=== PATIENT | male | born 1965 | race Caucasian/White ===

== ENCOUNTER → 2024-01-14 20:13 | Outpatient (REF) | payer BC, SELFPAY | LOC: MRI 3T 20:13 | PROVIDERS: ATTENDING PHYSICIAN Surgery; FAMILY PHYSICIAN Family Medicine | DX: R97.20 Elevated prostate specific antigen [PSA] (principal) | CPT/HCPCS: 72197; A9575 ==

== ENCOUNTER 2024-04-16 06:15 | Day surgery (SDC) | payer BC, SELFPAY ==
[2024-04-10 09:21] LABS: Hematocrit 44.7 % (39.0-52.0); Hemoglobin 14.8 g/dL (13.0-18.0); Mean Corp Hgb Conc. 33.1 g/dL (33.0-37.0); Mean Corpuscular Hgb 30.2 pg (27.0-31.0); Mean Corpuscular Volume 91.2 fL (80.0-94.0); Platelet Count 185 10^3/uL (130-400); Red Cell Dist. Width 13.5 % (11.5-14.5); White Blood Cell Count 5.6 10^3/uL (4.8-10.8)
[2024-04-10 09:32] LABS: INR 0.96
[2024-04-10 09:33] LABS: APTT 29.5 Sec (23.4-35.0)
[2024-04-10 09:57] LABS: Blood Urea Nitrogen 20 mg/dl (9-20); Calcium 9.1 mg/dl (8.4-10.2); Carbon Dioxide 34 mmol/L (22-30); Chloride 100 mmol/L (98-107); Glucose 74 mg/dl (70-99); Potassium 4.3 mmol/L (3.5-5.1); Sodium 140 mmol/L (135-145); eGFR > 60.00
[2024-04-10 11:40] VITALS: BMI 28.4
[2024-04-16] VITALS (23 sets, daily range): BP systolic 93–129; BP diastolic 53–98; BMI 27.6; BMI 28.6
[2024-04-16] MEDS: NEBCIN 480 MG/100 ML ENEMA 1 BOTTLE RECTAL (06:45)
[2024-04-16] MEDS: NORMOSOL-R/PLASMALYTE-A 1000 IV ×3 (06:45→23:34)
--- NOTE | 2024-04-16 10:12 | W.IMMPOSTOP ---
Surgical Immed Post Op Note
-
Primary Surgeon: Lori
Assisting Surgeon: Jono
Pre-op Diagnosis: prostate cancer
Post-op Diagnosis: same
Procedure Performed: radical perineal prostatectomy, bladder neck reconstruction
Anesthesia Type: GET
Specimen / Cultures: None
Estimated Blood Loss: 300 ml
Complications: None
[2024-04-16] MEDS: DILAUDID 0.5 MG IV (10:20)
[2024-04-16 10:37] LABS: Hematocrit 39.1 % (39.0-52.0); Hemoglobin 13.5 g/dL (13.0-18.0)
[2024-04-16] MEDS: DILAUDID 0.25 MG IV (10:39)
[2024-04-16 10:58] LABS: Blood Urea Nitrogen 16 mg/dl (9-20); Calcium 8.1 mg/dl (8.4-10.2); Carbon Dioxide 28 mmol/L (22-30); Chloride 102 mmol/L (98-107); Estimated Creatinine Clearance 116 ml/min; Glucose 166 mg/dl (70-99); Potassium 4.5 mmol/L (3.5-5.1); Sodium 135 mmol/L (135-145); eGFR > 60.00
[2024-04-16] MEDS: LEVAQUIN 100 IV (11:27)
[2024-04-16] MEDS: TORADOL IV (14:47)
[2024-04-16] MEDS: COLACE PO (14:48)
--- NOTE | 2024-04-16 15:05 | PTCARENOTE ---
Patient admitted from PACU into room 2135. Patient AAOx3, VSS, drowsy, states minimal pain and denies need for pain medication at this time. Benjamin putting out dark brown colored urine, perineum dressing with kecia drain draining moderate amount of
serosanguineous drainage. Urology at bedside, stated urine color is expected at this time from dye used in surgery, also stated drainage from perineum is expected and to change dressing PRN. Urology stated patient okay for regular diet. Normosol
infusing at 100 ml/hr. Patient oriented to room and call carvajal, call carvajal within reach, states no concerns at this time.
--- NOTE | 2024-04-16 15:59 | CM ---
Reviewed the chart notes and spoke with the patient at the bedside. The patient resides with his spouse and daughter in a two story home with six steps to enter. The patient reports no DME/VN/SNF in the past. The [facility] CM consult received for VN. Discussed with the patient area VNs, patient accept VN. Referral sent in Care Port. CM continues to be available to patient/family and is monitoring medical plan for needs at
discharge.
Plan: Discharge to home with VN services.
[2024-04-16] MEDS: COLACE 100 MG PO (16:10)
[2024-04-16] MEDS: TYLENOL 650 MG PO (16:10)
--- NOTE | 2024-04-16 16:30 | PTCARENOTE ---
Perineum dressing changed by this RN with second RN at request of urology; kecia drain intact, dry gauze and ABD pads applied to surgical site. Benjamin draining brown/blood tinged urine. Patient medicated with PRN tylenol for 3/10 pain at surgical
site after dressing change - see MAR. Regular diet order entered, SCDs and IVF in place, call carvajal within reach, patient states no concerns at this time.
[2024-04-16] MEDS: TORADOL 15 MG IV ×2 (17:23→23:34)
[2024-04-16] MEDS: POLYSPORIN/DOUBLE ANTIBIOTIC 1 APPLIC TOPICAL (20:26)
[2024-04-17 03:29] VITALS: BP 114/57
[2024-04-17] MEDS: TORADOL 15 MG IV ×3 (05:59→17:45)
[2024-04-17 07:17] LABS: Blood Urea Nitrogen 15 mg/dl (9-20); Calcium 8.5 mg/dl (8.4-10.2); Carbon Dioxide 33 mmol/L (22-30); Chloride 102 mmol/L (98-107); Estimated Creatinine Clearance 116 ml/min; Glucose 107 mg/dl (70-99); Potassium 4.2 mmol/L (3.5-5.1); Sodium 137 mmol/L (135-145); eGFR > 60.00
--- NOTE | 2024-04-17 07:25 | W.PN.URO.CBU ---
Today's Communication / Plan
-
Regular diet
HLIVF
OOB and ambulating
Maintain Benjamin catheter on discharge
CM consult for VN
Assessment / Plan
-
Prostate cancer
04/16: s/p RPP
Diagnosis
-
Date of Service: April 17, 2024
-
Patient Diagnosis:
Prostate cancer
Post Op Day:
04/16: s/p RPP
Subjective
-
Denies significant pain - comfortable.
Urine yellow in catheter tubing.
Notes early flatus.
Objective
-
Vital Signs
Temp Pulse Resp BP Pulse Ox
97.7 F 55 17 126/61 97
04/17/24 07:53 04/17/24 07:53 04/17/24 07:53 04/17/24 07:53 04/17/24 07:53
Intake and Output
04/16/24 04/17/24 04/18/24
06:59 06:59 06:59
Intake Total 1320 / 1320
Output Total 3075 / 3075
Balance -1755 / -1755
Intake:
Oral fluids 1020 / 1020
IV fluids (Total) 300 / 300
NORMOSOL 300 / 300
Output:
Urine, Benjamin 3075 / 3075
Laboratory Results
04/17/24 06:37
Physical Exam
-
General - well developed, well nourished, no acute distress
Abdomen - soft, non-tender, non-distended
Genitalia - normal, 18Fr catheter w/ yellow UOP, perineal wound c/d/i w/ expected mild drainage, Gerardo in place
Neuro - AOx3, no motor deficits
Extremities - no clubbing, no cyanosis, no edema
Care Review
Data Reviewed
Discussed with: Family
[2024-04-17 07:53] VITALS: BP 126/61
[2024-04-17] MEDS: POLYSPORIN/DOUBLE ANTIBIOTIC 1 APPLIC TOPICAL ×2 (09:06→19:57)
[2024-04-17] MEDS: COLACE 100 MG PO ×3 (09:06→17:43)
--- NOTE | 2024-04-17 09:52 | VNURNOTE ---
Home Health Liaison met with patient at bedside to discuss [facility] nurse/therapy, visits, schedule and homebound status. Patient is agreeable and understands that visits at home will be 2-3 x per week to assess and teach medical management and tapia
management.
Provided pt with [facility] contact information. Patient is aware that [facility] will contact them for start of care in 1-2 days after discharge from .
[facility] referral accepted in Care Port.
[2024-04-17] MEDS: NORMOSOL-R/PLASMALYTE-A IV (10:06)
[2024-04-17 11:21] LABS: Hemoglobin 12.5 g/dL (13.0-18.0); Mean Corp Hgb Conc. 33.8 g/dL (33.0-37.0); Mean Corpuscular Hgb 30.2 pg (27.0-31.0); Mean Corpuscular Volume 89.4 fL (80.0-94.0); Mean Platelet Volume 9.1 fL (7.4-10.4); Platelet Count 176 10^3/uL (130-400); Red Blood Cell Count 4.14 10^6/uL (4.70-6.10); Red Cell Dist. Width 13.6 % (11.5-14.5); White Blood Cell Count 13.5 10^3/uL (4.8-10.8)
[2024-04-17 12:00] VITALS: BP 115/53
[2024-04-17] MEDS: LEVAQUIN 100 IV (12:25)
--- NOTE | 2024-04-17 12:30 | CM ---
Reviewed the chart notes. CM continues to be available to patient/family and is monitoring medical plan for needs at discharge.
Plan: Discharge to home with [facility] services.
--- NOTE | 2024-04-17 14:29 | PTCARENOTE ---
Patient with Benjamin, Draining dark yellow/yellow urine at this time. denies pain. plan of care ongoing.
[2024-04-17 16:09] VITALS: BP 114/56
[2024-04-17 23:00] VITALS: BP 111/56
[2024-04-18] MEDS: MELATONIN 5 MG PO (02:50)
[2024-04-18 07:30] VITALS: BP 113/65
[2024-04-18] MEDS: COLACE 100 MG PO (08:27)
[2024-04-18] MEDS: POLYSPORIN/DOUBLE ANTIBIOTIC 1 APPLIC TOPICAL (08:27)
--- NOTE | 2024-04-18 08:30 | W.PN.URO.CBU ---
Today's Communication / Plan
-
Discharge home
Benjamin catheter teaching by RN (night bag and leg bag) prior to discharge
eRx (antibiotic + stool softener) sent to pharmacy
Catheter removal AM 04/27 by VN + PVR bladder scan PM 04/27 (office)
D/w patient.
Assessment / Plan
-
Prostate cancer
04/16: s/p RPP
Post-op milestones met.
Minimal pain controlled w/ non-opioid analgesics.
Clinically stable for discharge home.
Diagnosis
-
Date of Service: April 18, 2024
-
Patient Diagnosis:
Prostate cancer
Post Op Day:
04/16: s/p RPP
Subjective
-
Notes pressure and mild pain only w/ position change.
Only taking Tylenol or Ibuprofen.
Having breakfast.
+flatus.
Objective
-
Vital Signs
Temp Pulse Resp BP Pulse Ox
98.6 F 58 18 113/65 95
04/18/24 07:30 04/18/24 07:30 04/18/24 07:30 04/18/24 07:30 04/18/24 07:30
Intake and Output
04/17/24 04/18/24 04/19/24
06:59 06:59 07:59
Intake Total 1320 / 1320 2300 / 2300
Output Total 3075 / 3075 2825 / 2825
Balance -1755 / -1755 -525 / -525
Intake:
Oral fluids 1020 / 1020 1800 / 1800
IV fluids (Total) 300 / 300 500 / 500
NORMOSOL 300 / 300
Output:
Urine, Benjamin 3075 / 3075 2825 / 2825
Laboratory Results
04/17/24 06:37
04/17/24 06:37
Physical Exam
-
General - well developed, well nourished, no acute distress
Abdomen - soft, non-tender, non-distended
- normal, 18Fr catheter w/ clear yellow UOP, perineal incision c/d/i - [place] drain removed
Rectal - normal
Skin - warm & dry with no rash
Neuro - AOx3, no motor deficits
Extremities - no clubbing, no cyanosis, no edema
Care Review
Data Reviewed
Discussed with: Nursing
--- NOTE | 2024-04-18 08:33 | W.DS.TRANS ---
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
-
Discharge Instructions:
Discharge Diagnosis/Procedures prostate cancer s/p radical perineal
prostatectomy
Diet Regular
Activity No strenuous activity
Additional Activity No strenuous exercise, lifting >20 lbs, or
swimming/pools/tubs x4 weeks
Driving Restrictions No driving for 1 week
Bathing Restrictions OK to Shower
Blood Work n/a
Other Services VN
Wound Care Shower after every bowel movement to keep
perineal wound clean
Instructions:
Stand-Alone Forms:
Changes to Home Medications: No
Discharge Medications:
DC Medications w/original date entered in [facility]
[id number] capsule (Glucosamine Complex-MSM capsule) 2 cap PO DAILY 04/07/24
multivitamin 1 tab PO DAILY Supplement 04/07/24
amoxicillin 500 mg-potassium clavulanate 125 mg tablet (Augmentin) 1 tab PO BID 5 days #10 tabs 04/17/24
docusate sodium 100 mg capsule (Colace) 100 mg PO BID PRN constipation, hard bowel movements 5 days #10 caps 04/17/24
Home Medication Changes
Pending Results: Yes
Additional Pending Results:
pathology
Total time spent discharging patient (in min): 50
[2024-04-18] MEDS: AFLURIA (36 mos+) 2024-2025 FORMULA 0.5 ML IM (10:01)
--- NOTE | 2024-04-18 10:09 | CM ---
Patient seen at bedside.
Discharge to home today
[facility] accepted
IMM n/a
PLAN: home with [facility]
to transport
== END 2024-04-18 11:29 | disposition home or self-care (01) ==
LOC: SPU 06:15
PROVIDERS: Specialist; ATTENDING PHYSICIAN Surgery; FAMILY PHYSICIAN Family Medicine
DX: C61 Malignant neoplasm of prostate (principal)
CPT/HCPCS: 55810; 88305; 88309; 88332; 80048; 85014; 85018; 85027; 85610; 85730; 86850; 86900; 86901; 88331; 90686; 93005; G0008